=== PATIENT | male | born 1980 | race Two or more races ===

== ENCOUNTER 2024-07-07 08:42 | Emergency (ER) | payer BC, SELFPAY ==
[2024-07-07 08:43] VITALS: BMI 31.1
[2024-07-07 08:51] VITALS: BP 160/75; PULSE 84; RESP 19; TEMP 36.9; O2SAT 99
--- NOTE | 2024-07-07 08:51 | XR_ITS ---
EXAMINATION: US testicular HISTORY: Right testicular pain and swelling x1 day. COMPARISON: None. FINDINGS: Right testicle size: 5.0 x 2.8 x 3.5 cm. Right testicle parenchyma: Within normal limits. No mass. Right testicle location: Normally positioned within the scrotum. Right epididymis: Within normal limits. Other findings right: Trace hydrocele. No varicocele. Left testicle size: 4.6 x 2.8 x 3.6 cm. Left testicle parenchyma: Within normal limits. No mass. Left testicle location: Normally positioned within the scrotum. Left epididymis: Within normal limits. Other findings left: No hydrocele. No varicocele. Doppler: Arterial and venous color Doppler flow and spectral waveforms within both testes are within normal limits. IMPRESSION: 1. No sonographic findings for testicular torsion. 2. Trace right hydrocele.
--- NOTE | 2024-07-07 08:53 | PD.EDRME ---
Rapid Medical Screening Exam E Arrival date/time: 07/07/24 08:42 43-year-old male with no known medical history presents to the emergency room with a chief complaint of right sided testicular tenderness and swelling x 2 days. I have greeted and performed a focused initial assessment of this patient. A comprehensive ED assessment and evaluation of the patient, analysis of all test results, and completion of the medical decision making process will be conducted by additional ED providers. Chief Complaint: Urogenital-Male Vital signs: Vital Signs Temperature 98.4 F 07/07/24 08:51 Pulse Rate 84 07/07/24 08:51 Respiratory Rate 19 07/07/24 08:51 Blood Pressure 160/75 H 07/07/24 08:51 Pulse Oximetry (%) 99 07/07/24 08:51 Oxygen Delivery Method Room Air 07/07/24 08:51 Vital signs reviewed by provider: Yes
[2024-07-07 09:15] LABS: Collection Type, Urine Clean Catch
[2024-07-07 09:25] LABS: Bilirubin,Urine Negative (Negative); Blood,Urine Negative (Negative); Clarity,Urine Clear (Clear/Hazy); Color,Urine Yellow (Lt Yel-Yel); Culture Indicated,Urine Not Indicated; Glucose, Urine Negative (Negative); Ketones,Urine Negative (Negative); Leukocyte Esterase,Urine Negative (Negative); Nitrite,Urine Negative (Negative); Protein,Urine Trace (Neg - Trace); RBC,Urine 2 /hpf (0-3); Specific Gravity,Urine 1.028 (1.001-1.035); Squamous Epithelial Cell,Urine < 1 /hpf (0-5); Urobilinogen,Urine Negative mg/dL (0.0-1.0); WBC,Urine 1 /hpf (0-5)
--- NOTE | 2024-07-07 10:38 | PC.NURSE ---
JIA BEAUCHAMP [employer] SPEAK WITH PT HE IS WANTING TO KNOW WHY HE IS GETTING ABX
[2024-07-07] MEDS: cefTRIAXone 1,000 MG, LIDOCAINE 1% 20 ML 2.1 ML IM (10:41)
[2024-07-07 11:03] LABS: Basophils # (Auto) 0.1 Thou/mm3 (0.0-0.2); Basophils % (Auto) 1 % (0-2.5); Eosinophils % (Auto) 0 % (0-10); Hematocrit 41.8 % (41.0-53.0); Hemoglobin 14.6 g/dL (13.5-16.0); Immature Granulocytes % (Auto) 0 % (0-0); Immature Granulocytes Auto 0.03 Thou/mm3 (0.00-0.00); Lymphocytes # (Auto) 2.1 Thou/mm3 (1.0-4.8); Lymphocytes % (Auto) 22 % (10-50); Mean Corpuscular HGB Conc 34.9 g/dl (31.0-37.0); Mean Corpuscular Hemoglobin 29.6 pg (25.0-35.0); Mean Corpuscular Volume 85 fL (80-100); Monocytes # (Auto) 0.6 Thou/mm3 (0.0-0.8); Monocytes % (Auto) 6 % (0-12); Neutrophils # (Auto) 6.4 Thou/mm3 (1.8-7.7); Neutrophils % (Auto) 70 % (37-80); Nucleated Red Blood Cell % 0 /100 WBC (0); Platelet Count 344 Thou/mm3 (140-440); RDW Standard Deviation 40.4 fL (35.1-43.9); Red Blood Count 4.93 Miln/mm3 (4.50-5.90); White Blood Count 9.1 Thou/mm3 (3.8-10.6)
[2024-07-07 11:22] LABS: Alanine Aminotransferase 27 U/L (10-49); Albumin/Globulin Ratio 1.7 (1.2-2.2); Alkaline Phosphatase 67 U/L (46-116); Anion Gap 8 (7-16); Aspartate Amino Transferase 19 U/L (0-34); BUN/Creatinine Ratio 16 Ratio (12-20); Bilirubin,Total 1.1 mg/dL (0.3-1.2); Blood Urea Nitrogen 14 mg/dL (9-23); Calcium 9.8 mg/dL (8.3-10.6); Calcium (Corrected) 9.8 mg/dL (8.5-10.1); Carbon Dioxide 27.2 mMol/L (20.0-31.0); Chloride 104 mMol/L (98-107); Creatinine (Component) 0.9 mg/dL (0.6-1.3); Estimated Creatinine Clearance 117.1 mL/min (>60); Globulin 2.9 gm/dL (2.3-3.5); Glucose 99 mg/dL (74-106); Osmolality,Calculated 278 (275-295); Potassium 4.4 mMol/L (3.4-5.1); Sodium 139 mMol/L (136-145); Total Protein 7.9 gm/dL (5.7-8.2); eGFR > 60 See Note
--- NOTE | 2024-07-13 06:40 | EDNOTE_ITS ---
ED Male Genitalurinary RME/HPI General Chief complaint: Urogenital-Male Stated complaint: GROIN PAIN SINCE 2299 SENT BY CLINIC R/O TORSION Time Seen by Provider: 07/07/24 10:12 Source: patient Arrival date/time: 07/07/24 08:42 43-year-old male with no known medical history presents to the emergency room with a chief complaint of right sided testicular tenderness and swelling x 2 days. Patient was sent by his primary care provider to rule out testicular torsion. Mode of arrival: ambulatory Limitations: no limitations RME / HPI RME / HPI Narrative: 07/07/24 08:42 43-year-old male with no known medical history presents to the emergency room with a chief complaint of right sided testicular tenderness and swelling x 2 days. I have greeted and performed a focused initial assessment of this patient. A comprehensive ED assessment and evaluation of the patient, analysis of all test results, and completion of the medical decision making process will be conducted by additional ED providers. Related Data Previous Rx's ?Medication ?Instructions ?Recorded doxycycline monohydrate 100 mg 100 mg PO BID 10 days # 20 caps 07/07/24 capsule Allergies Allergy/AdvReac Type Severity Reaction Status Date / Time No Known Allergies Allergy Verified 07/07/24 08:46 Review of Systems Review of Systems Systems Reviewed: All systems reviewed, normal except as documented Constitutional Constitutional: Reports system reviewed and no additional complaints, except as documented, Denies fatigue, Denies fever(s), Denies headache(s) and Denies weakness Eyes Eyes: Reports system reviewed and no additional complaints, except as documented, Denies blurry vision and Denies change in vision ENT Ears, Nose, Mouth, and Throat: Reports system reviewed and no additional complaints, except as documented, Denies otalgia, Denies headache(s), Denies na gladys congestion, Denies throat swelling and Denies vertigo Cardiovascular Cardiovascular: Reports system reviewed and no additional complaints, except as documented, Denies chest pain, Denies dyspnea and Denies dyspnea on exertion Respiratory Respiratory: Reports system reviewed and no additional complaints, except as documented, Denies chest congestion, Denies cough, Denies dyspnea, Denies dyspnea on exertion and Denies wheezing Gastrointestinal Gastrointestinal: Reports system reviewed and no additional complaints, except as documented, Denies abdominal pain, Denies cramping, Denies nausea and Denies vomiting Genitourinary Genitourinary: Reports system reviewed and no additional complaints, except as documented, Denies difficulty urinating, Denies dysuria, Denies flank pain, Denies genital pain, Denies hematospermia, Denies hematuria, Denies nocturia, Denies oliguria, Denies painful ejaculations, Denies penile discharge, Reports scrotal swelling, Reports testicular pain, Denies urinary frequency, Denies urinary hesitancy, Denies urinary incontinence and Denies urinary urgency Musculoskeletal Musculoskeletal: Reports system reviewed and no additional complaints, except as documented and Denies back pain Integumentary/Breasts Skin/Breast: Reports system reviewed and no additional complaints, except as documented and Denies wounds Neurologic Neurologic: Reports system reviewed and no additional complaints, except as documented, Denies confusion, Denies headache(s), Denies lack of coordination, Denies vertigo and Denies weakness Psychiatric Psychiatric: Reports system reviewed and no additional complaints, except as documented, Denies anxiety, Denies confusion, Denies depression, Denies paranoia, Denies suicidal ideation and Denies tactile hallucinations Endocrine Endocrine: Reports system reviewed and no additional complaints, except as documented and Denies fatigue Hematologic/Lymphatic Hematologic/Lymphatic: Reports system reviewed and no additional complaints, except as documented and Denies lymphadenopathy Allergic/Immunologic Allergic/Immunologic: Reports system reviewed and no additional complaints, except as documented, Denies throat swelling, Denies urticaria and Denies wheezing Past Medical History Social History SMOKING STATUS: Never smoker ED Exam General Limitations: Present no limitations General appearance: Present alert and in no apparent distress Head Head exam: Present atraumatic Eye Eye exam: Present normal appearance, PERRL and EOMI ENT ENT exam: Present normal exam, normal oropharynx and mucous membranes moist Neck Neck exam: Present normal inspection, full ROM and trachea midline Chest Chest inspection: Present normal inspection and symmetric chest wall rise Respiratory Respiratory exam: Present normal lung sounds bilaterally Cardiovascular Cardiovascular exam: Present regular rate, normal rhythm and normal heart sounds Abdominal Exam Abdominal exam: Present soft and normal bowel sounds exam: Present testicular tenderness and scrotal swelling; Absent urethral discharge, normal testicular lie or circumcised Expanded Exam Scrotal exam: left: cremasteric reflex present and right: testicular tenderness, testicular swelling, epididymal tenderness and cremasteric reflex absent Extremities Exam Extremities exam: Present normal inspection and full ROM Back Exam Back exam: Present normal inspection and full ROM Neurological Exam Neurological exam: Present alert, oriented X3 and CN II-XII intact Psychiatric Psychiatric exam: Present normal affect and normal mood Skin Skin exam: Present warm, dry, intact and normal color Course Quality Measures none Orders Category Date Time Status US testicular Stat Exams 07/07/24 08:51 Completed CBC Stat Lab 07/07/24 10:35 Completed CMP [Comprehensive Metabolic Panel] Stat Lab 07/07/24 10:35 Completed UA, C/S IF [Urinalysis, C/S if Indicated] Stat Lab 07/07/24 09:10 Completed cefTRIAXone [Rocephin] 1,000 mg Med 07/07/24 10:13 Discontinued Lidocaine 1% 20 ml [Xylocaine 1% 20 ML] 2.1 ml IM X1 Vital Signs Vital signs: Vital Signs Temperature 98.4 F 07/07/24 08:51 Pulse Rate 84 07/07/24 08:51 Respiratory Rate 19 07/07/24 08:51 Blood Pressure 160/75 H 07/07/24 08:51 Pulse Oximetry (%) 99 07/07/24 08:51 Oxygen Delivery Method Room Air 07/07/24 08:51 O2 saturation 99% within normal limits Urogenital - Male MDM Narrative MDM Narrative:: 43-year-old male with no known medical history presents to the emergency room with a chief complaint of right sided testicular tenderness and swelling x 2 days. Patient is hemodynamically stable Physical examination shows right sided testicular swelling and tenderness. There is an absent hemostatic reflex to the right side. Left side is within normal limits The patient denies any urinary disturbances. The patient has no dysuria, hem aturia or any pain tenderness urgency or frequency with urination. Ultrasound of the testicle was completed and shows no testicular torsion and shows right sided hydrocele. Antibiotics are sent to the patient's pharmacy. Patient was discharged and educated to follow-up with primary care provider in the next 24 to 48 hours and return to the emergency room for any evidence of worsening signs or symptoms Patient data External records reviewed:: [facility] [place] previous records Clinical information provided by:: patient Social determinants that could affect healthcare access:: none Patient has the following chronic illnesses:: No chronic illness How is presenting disease/condition affected by chronic disease/condition?: no chronic disease Evaluation data The following diagnostics were reviewed and interpreted by me:: lab results and radiology exam(s) Lab and/or radiology exams considered but not ordered:: Labs and radiology exams considered and ordered Interpretation Summary: Testicular ultrasound-FINDINGS: Right testicle size: 5.0 x 2.8 x 3.5 cm. Right testicle parenchyma: Within normal limits. No mass. Right testicle location: Normally positioned within the scrotum. Right epididymis: Within normal limits. Other findings right: Trace hydrocele. No varicocele. Left testicle size: 4.6 x 2.8 x 3.6 cm. Left testicle parenchyma: Within normal limits. No mass. Left testicle location: Normally positioned within the scrotum. Left epididymis: Within normal limits. Other findings left: No hydrocele. No varicocele. Doppler: Arterial and venous color Doppler flow and spectral waveforms within both testes are within normal limits. IMPRESSION: 1. No sonographic findings for testicular torsion. 2. Trace right hydrocele. Medications / Prescriptions Medications or Prescriptions considered but not ordered:: Rx given Medication administrations:: Medication Administration History Discontinued Medications Ceftriaxone Sodium 1,000 mg/ (Lidocaine HCl 2.1 ml) 0 mg IM X1 ONE Stop: 07/07/24 10:14 Last Admin: 07/07/24 10:41 Dose: 1,000 mg Documented By: BD Medication given Consultations Consultation(s) initiated? (list below): No Diagnosis Urogenital Male Differential Diagnosis: urinary tract infection, urethritis, epididymitis, prostatitis and inguinal hernia Most likely diagnosis given after review of the tests above:: Epididymitis Admission Indicated Admission indicated?: not indicated Admission Request Was there a request for admission?: No Disposition Plan Disposition Plan: Discharge Discharge Attestation Discharge Attestation: The patient and all family members were given an opportunity to ask questions and understood the discharge instructions. Discharge instructions specifically effects, indications for sooner follow up or return to the emergency department, and the expected course of current diagnosis. Patient condition: Stable Discharge Plan Plan Patient Disposition: HOME (Self Care) Disposition Comment: Stable Prescriptions/Referrals Prescriptions/Med Rec: New doxycycline monohydrate 100 mg capsule 100 mg PO BID 10 Days Qty: 20 0RF Referrals: No Primary/Family,Physician [Primary Care Provider] - In 1 week Problem List Clinical Impression: Epididymitis Patient/Caregiver Discharge Instructions Education Materials: ED Epididymitis Additional Instructions: Please follow-up with your primary care provider in the next 24 to 48 hours. Your ultrasound was negative for any testicular torsion. Antibiotics are sent to your pharmacy please pick them up and take them as indicated. For any evidence of worsening signs or symptoms return to the emergency room immediately Print Language: Swazi Stand Alone Forms: Katja Award Info., Work/School Release, Patient Portal Info Letter PA/AMMONIA [employer]UTION PREPARER Supervising Physician PA/AMMONIA [employer]UTION PREPARER Supervising Physician: Dr. Montano
== END 2024-07-07 12:03 | disposition home or self-care (01) ==
PROVIDERS: Nurse Practitioner Family; Emergency Provider Emergency Medicine
DX: N45.1 Epididymitis (principal); N43.3 Hydrocele, unspecified
CPT/HCPCS: 36415; 76870; 80053; 81001; 85025; 96372; 99284; J0696; J3490

== ENCOUNTER 2024-11-29 23:08 | Emergency (ER) | payer BC, SELFPAY ==
[2024-11-29 23:09] VITALS: BMI 32.8
[2024-11-29 23:36] VITALS: BP 147/84; PULSE 84; RESP 19; TEMP 36.6; O2SAT 98
--- NOTE | 2024-11-30 00:30 | PD.EDALLER ---
ED Allergic Reaction RME/HPI General Chief complaint: Allergic Reaction Stated complaint: ALLERGIC REACTION Time Seen by Provider: 11/29/24 23:31 Arrival date/time: 11/29/24 23:08 RME / HPI RME / HPI narrative: 43-year-old male with no past medical history presents to the ED with a complaint of hives to his bilateral arms, neck, chest and back. Symptoms began after he went into a [place]va to get one of his chickens. He had just had pest control service and had sprayed around the area perimeter of his yard where the chicken was. He denies any difficulty breathing, difficulty swallowing, wheezing or tongue swelling. He took Yael earlier today and Benadryl this evening. MD complaint: allergic reaction and hives Related Data Previous Rx's ?Medication ?Instructions ?Recorded famotidine 40 mg tablet (Pepcid) 40 mg PO QDAY #7 tabs 11/30/24 prednisone 20 mg tablet 60 mg (3 x 20 mg) PO QDAY 4 days 11/30/24 #12 tabs Allergies Allergy/AdvReac Type Severity Reaction Status Date / Time No Known Allergies Allergy Verified 11/29/24 23:15 Review of Systems Review of Systems Systems Reviewed: All systems reviewed, normal except as documented Past Medical History Social History SMOKING STATUS: Never smoker ED Exam Narrative Physical exam: A&O, afebrile and non-toxic appearing 43-year-old male, no acute distress. Lung sounds are clear, no wheezing or stridor noted, RRR, Abdomen is non-distended. Tongue and oropharynx are without swelling. Skin is warm, dry, with urticarial type rash noted to his bilateral upper extremities and some to his abdomen. He states the rash to his neck, back and chest has overall improved since taking Benadryl. Moves all extremities well. Course Course Course Narrative: Patient has already taken Yael and Benadryl at home. Patient was given Pepcid 40 mg p.o. and prednisone 60 mg p.o. while here in the ED. Quality Measures none Orders Category Date Time Status Famotidine [Pepcid] Med 11/30/24 00:29 Once 40 mg PO X1 ONE predniSONE Med 11/30/24 00:29 Once 60 mg PO X1 ONE Vital Signs Vital signs: Vital Signs Temperature 97.9 F 11/29/24 23:36 Pulse Rate 84 11/29/24 23:36 Respiratory Rate 19 11/29/24 23:36 Blood Pressure 147/84 H 11/29/24 23:36 Pulse Oximetry (%) 98 11/29/24 23:36 Oxygen Delivery Method Room Air 11/29/24 23:36 Allergic Reaction MDM Narrative MDM Narrative:: Symptoms, exam and diagnostic studies are consistent with: Urticaria secondary to allergic reaction, likely from pesticides. Patient was discharged home in stable condition, with prescriptions for prednisone and Pepcid. Patient/family advised to follow-up with their PCP in 24-48 hours. Encouraged to return to the ED for any new or worsening symptoms. Patient data External records reviewed:: None Clinical information provided by:: patient Social determinants that could affect healthcare access:: none Patient has the following chronic illnesses:: N/A How is presenting disease/condition affected by chronic disease/condition?: no chronic disease Evaluation data The following diagnostics were reviewed and interpreted by me:: other (specify) (N/A) Lab and/or radiology exams considered but not ordered:: N/A Interpretation Summary: N/A Medications / Prescriptions Medications or Prescriptions considered but not ordered:: N/A Medication administrations:: Pepcid 40 mg and prednisone 60 mg p.o. Consultations Consultation(s) initiated? (list below): No Diagnosis Differential Diagnosis allergic reaction: allergic reaction, contact dermatitis and urticaria Most likely diagnosis given after review of the tests above:: Urticaria secondary to mild allergic reaction, likely to pesticides. Admission Indicated Admission indicated?: not indicated Explain why admission is indicated or not indicated:: Patient is stable for discharge Admission Request Was there a request for admission?: No Admission Attestation Admission request attestation: N/A Disposition Plan Disposition Plan: Discharge Discharge Attestation Discharge Attestation: The patient and all family members were given an opportunity to ask questions and understood the discharge instructions. Discharge instructions specifically effects, indications for sooner follow up or return to the emergency department, and the expected course of current diagnosis. Patient condition: Stable Discharge Plan Plan Patient Disposition: HOME (Self Care) Discharge Disposition comment: Stable and improved Prescriptions/Referrals Prescriptions/Med Rec: New famotidine [Pepcid] 40 mg tablet 40 mg PO QDAY Qty: 7 0RF prednisone 20 mg tablet 60 mg PO QDAY 4 Days Qty: 12 0RF Rx Instructions: Begin taking the prednisone 24 hours after discharge. Problem List Clinical Impression: Urticaria, Allergic reaction Patient/Caregiver Discharge Instructions Education Materials: ED Hives (Adult) Additional Instructions: Take the medications as prescribed, to help control and eliminate your symptoms. Follow-up with your primary care physician in 24 to 48 hours. Return to the ED for any new or worsening symptoms. Print Language: Mauritian Stand Alone Forms: Katja Award Info., Patient Portal Info Letter BRADY/RAMON Supervising Physician PA/RAMON Supervising Physician: Dr Garay
[2024-11-30] MEDS: FAMOTIDINE 20 MG TABLET 40 MG PO (01:12)
[2024-11-30 01:13] VITALS: BP 150/92; PULSE 73; RESP 18; TEMP 36.9; O2SAT 95
== END 2024-11-30 01:35 | disposition home or self-care (01) ==
PROVIDERS: Emergency Provider Emergency Medicine
DX: L50.0 Allergic urticaria (principal)
CPT/HCPCS: 99283; J7512; A9270